=== PATIENT | female | born 1935 | race Caucasian/White ===

== ENCOUNTER 2019-10-15 12:49 | Outpatient (CLI) | payer MEDICARE, SELFPAY ==
--- NOTE | ~2019-10-15 | MMUS_ITS ---
EXAMINATION: MM diagnostic temitope BI w yaneth, US breast BI complete HISTORY: Bilateral breast pain TECHNIQUE: ML, MLO and cc 3-D tomosynthesis images of both breasts were performed and synthetic 2-D i mages were generated. CAD analysis was submitted and interpreted. High resolution bilateral complete breast ultrasound was performed. COMPARISON: 02/03/2019, 10/25/2017, 09/14/2016 bilateral digital screening mammogram examinations BREAST PARENCHYMAL COMPOSITION: The breasts are heterogeneously dense, which may obscure small masses . FINDINGS: MAMMOGRAPHIC FINDINGS: Occasional bilateral benign calcifications and bilateral benign arterial calcifications are noted. No suspicious mass or architectural distortion, malignant calcification, skin thickening or retraction or significant new or developing density is detected. ULTRASOUND: There is no evidence of focal abnormal solid or cystic lesion of either breast. IMPRESSION: 1. No mammographic evidence of malignancy 2. Routine mammographic screening is recommended. BI-RADS Category 1: Negative Reviewed, dictated and finalized at location A. IMPRESSION: 1. No mammographic evidence of malignancy 2. Routine mammographic screening is recommended. BI-RADS Category 1: Negative
== END 2019-10-15 12:50 | disposition home or self-care (01) ==
PROVIDERS: PCP Family Medicine; Visit Provider Family Medicine
DX: N64.4 Mastodynia (principal)
CPT/HCPCS: 76641; 77062; 77066; G0279

== ENCOUNTER 2021-06-27 13:57 | Outpatient (CLI) | payer MEDICARE, SELFPAY ==
--- NOTE | ~2021-06-27 | XR_ITS ---
EXAMINATION: XR hip LT 2V w AP pelvis INDICATION: Left hip pain TECHNIQUE: AP view the pelvis and two views of the left hip are obtained COMPARISON: CT, 08/05/2011 FINDINGS: Bone alignment is normal. There is no fracture. There is mild osteoarthritis of the hips. C hronic soft tissue calcifications are noted in the pelvis. Pelvic phleboliths are also noted. There i s severe lower lumbar spondylosis. There is calcified atherosclerosis. IMPRESSION: 1. No acute osseous abnormality. Reviewed, dictated and finalized at location B. 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
--- NOTE | ~2021-06-27 | XR_ITS ---
EXAMINATION: XR lumbar spine 2-3V DATE: 06/27/2021 14:19 INDICATION: Radiculopathy, site unspecified TECHNIQUE: Anteroposterior and lateral views of the lumbar spine, and cone-down lateral view of the l umbosacral junction were obtained. COMPARISON: CT, 08/05/2011 FINDINGS: There is lumbar levocurvature. There are 8 mm of anterolisthesis of L4 on L5. There is shameka re loss of intervertebral disc space height throughout the lumbar spine. The lumbar vertebral body he ights are maintained. No fracture is identified. There is severe facet osteoarthritis throughout the lumbar spine. Calcified atherosclerosis is noted. Chronic soft tissue calcification is noted posterio rly on the right. IMPRESSION: 1. Severe lumbar spondylosis without acute findings. Reviewed, dictated and finalized at location B. 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
== END 2021-06-27 13:58 | disposition home or self-care (01) ==
PROVIDERS: PCP Family Medicine; Visit Provider Family Medicine
DX: M25.552 Pain in left hip (principal); M47.26 Other spondylosis with radiculopathy, lumbar region
CPT/HCPCS: 72100; 73502

== ENCOUNTER 2021-07-15 12:19 | Emergency (ER) | payer MEDICARE, SELFPAY ==
[2021-07-15 12:27] VITALS: BP 147/59; PULSE 78; RESP 16; TEMP 36.6; O2SAT 100
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
== END 2021-07-15 13:23 | disposition home or self-care (01) ==
PROVIDERS: Emergency Provider Registered Nurse; PCP Family Medicine
DX: K13.79 Other lesions of oral mucosa (principal); K22.70 Barrett's esophagus without dysplasia; E78.5 Hyperlipidemia, unspecified; M06.9 Rheumatoid arthritis, unspecified
CPT/HCPCS: 99213; G0463

== ENCOUNTER 2021-08-29 13:35 | Outpatient (CLI) | payer MEDICARE, SELFPAY ==
--- NOTE | ~2021-08-29 | CT_ITS ---
EXAMINATION: CT brain wo/w con DATE: 08/29/2021 14:09 INDICATION: Repeated falls TECHNIQUE: Computed tomography (CT) of the head was performed without and subsequently with 100 CC Om nipaque 300 intravenous contrast. The mA was adjusted according to patient size. Iterative reconstruc tion technique was employed. Exam dose: 1210.67 mGy-cm total exam DLP. COMPARISON: None FINDINGS: Bilateral vertebral artery and basilar artery calcification and prominent bilateral carotid siphon and supraclinoid internal carotid artery calcifications are noted. Mild bilateral basal ganglia calcification. There is nonspecific diminished attenuation of the cerebral white matter, likely due to chronic small vessel ischemic changes. Prominent hyperdense approximately 7.5 mm wide 4.4 mm deep density along the inner table in the left frontal lobe, likely a small benign meningioma. There is moderate cerebellar and cerebral volume loss consistent with patient age. Otherwise no intracranial mass lesion or any intracranial hemorrhage is noted. No midline shift or ma ss effect. Likely old anterior and lateral wall fractures of the left maxillary sinus, left inferior orbital rim . No fracture or bone destruction of the cranial vault. No subdural or epidural hematoma. IMPRESSION: Probable old fractures of the anterior and lateral reed of left maxillary sinus, left i nfraorbital rim No skull fracture Cerebral atherosclerosis and chronic small vessel ischemic changes of the cerebral white matter Small left frontal meningioma Reviewed, dictated and finalized at Location A. Reviewed, dictated and finalized at location B. IMPRESSION: Probable old fractures of the anterior and lateral reed of left m axillary sinus, left infraorbital rim No skull fracture Cerebral atherosclerosis and chronic small vessel ischemic changes of the cereb ral white matter Small left frontal meningioma
== END 2021-08-29 13:36 | disposition home or self-care (01) ==
PROVIDERS: PCP Family Medicine; Visit Provider Family Medicine
DX: R29.6 Repeated falls (principal); I67.2 Cerebral atherosclerosis
CPT/HCPCS: 70470; Q9967

== ENCOUNTER 2021-11-23 12:50 | Outpatient (CLI) | payer MEDICARE, SELFPAY ==
--- NOTE | ~2021-11-23 | MM_ITS ---
EXAMINATION: MM screening temitope BI w yaneth HISTORY: Screening TECHNIQUE: Craniocaudal and mediolateral oblique 3-D tomosynthesis images were obtained and synthetic 2-D images were generated. CAD analysis was submitted and interpreted. COMPARISON: Comparison to multiple prior studies sequentially, with oldest reviewed study dated 09/03. BREAST PARENCHYMAL COMPOSITION: The breasts are extremely dense, which lowers the sensitivity of mamm ography FINDINGS: There is no evidence of suspicious mass, calcification, or architectural distortion to sugg est malignancy in either breast. There has been no suspicious interval change. IMPRESSION: 1. No mammographic evidence of malignancy. 2. Recommend routine screening mammography in one year. BI-RADS Category 1: Negative Reviewed, dictated and finalized at location A.
== END 2021-11-23 12:51 | disposition home or self-care (01) ==
PROVIDERS: PCP Family Medicine; Visit Provider Family Medicine
DX: Z12.31 Encounter for screening mammogram for malignant neoplasm of breast (principal)
CPT/HCPCS: 77063; 77067

== ENCOUNTER → 2021-11-24 11:44 | Outpatient (CLI) | payer MEDICARE, SELFPAY ==
--- NOTE | ~2021-11-24 | XR_ITS ---
XR hip RT 2V w AP pelvis DATE: 11/24/2021 12:12 INDICATION: Right hip pain starting 5 days ago. No known injury. TECHNIQUE: AP pelvis. AP and lateral views of right hip. COMPARISON: 06/27/2021 pelvis and left hip FINDINGS: There is osteopenia. Dextro scoliosis and degenerative disc disease of the lumbar spine. No pelvic fracture or bone destruction is detected. Normal alignment at the pubic symphysis and sacro iliac joints. Mild osteoarthritis at the right hip joint. No fracture or dislocation, avascular necrosis or bone destruction of the right hip is detected. Ther e are some benign soft tissue calcifications around both hip joints. IMPRESSION: Mild right hip osteoarthritis Osteopenia Reviewed, dictated and finalized at location B.
== END ==
PROVIDERS: PCP Family Medicine; Visit Provider Family Medicine
DX: M25.551 Pain in right hip (principal); M16.11 Unilateral primary osteoarthritis, right hip; M85.861 Other specified disorders of bone density and structure, right lower leg
CPT/HCPCS: 73502

== ENCOUNTER → 2022-02-14 09:58 | Outpatient (CLI) | payer MEDICARE, SELFPAY ==
--- NOTE | ~2022-02-14 | MR_ITS ---
EXAMINATION: MR hip RT wo con DATE: 02/14/2022 12:09 INDICATION: Right hip pain TECHNIQUE: Magnetic resonance imaging (MRI) of the right hip was performed without intravenous contr ast. Sequences included full-field axial PD-weighted FS FSE and T1-weighted FSE, coronal of the pelvi s with PD-weighted FS FSE, small field of view of the affected hip with axial PD-weighted FS FSE, sa gittal PD-weighted FS FSE and coronal PD weighted FS FSE. Additional radial T1-weighted FGR oriented orthogonal to the acetabular rim were obtained for evaluation of the labrum. COMPARISON: None FINDINGS: Bones/labrum/cartilage: Alignment is normal. No fracture, avascular necrosis or pathologic marrow replacing process. . Degen erative tearing of the right acetabular labrum. Mild to moderate osteoarthritis at the right hip with nonuniform partial thickness cartilage loss with scattered chondral surface regularity. Mild subarti cular cystic change along the posterior superior rim of the right acetabulum. Small marginal osteophy zoe about both the right femoral head and acetabulum. Similar findings suggested but not diagnostical ly evaluated at the contralateral left hip on the larger field of view images. Severe lumbar spondylo sis. Moderate osteoarthritis at the bilateral sacroiliac joints. Fluid: Small bilateral hip joint effusions. Soft tissues: No asymmetric muscle atrophy or abnormal signal in the pelvis and visualized proximal thighs. Mild te ndinopathy without discrete tear at the left gluteus minimus, bilateral gluteus medius and left proxi mal hamstring tendons. The iliopsoas, remaining gluteal and right proximal hamstring tendons are norm al. The uterus is not identified and has likely been surgically resected. Bladder is normal. Bowels a re unremarkable. Severe right hydronephrosis with a dilated renal pelvis and collecting systems measu ring approximately 11 x 10.7 x 9.2 cm consistent with a UPJ obstruction which is new since CT dated 05/04/2011. Subcutaneous low signal intensity heterotopic ossicles likely representing injection granu lomata at the bilateral buttocks. No pathologically enlarged pelvic/inguinal lymphadenopathy. IMPRESSION: 1. Mild to moderate right hip osteoarthritis with diffuse labral degeneration and likely reactive sma ll right hip joint effusion. Similar findings suggested but not diagnostically evaluated at the contr alateral left hip. 2. 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 Reviewed, dictated and finalized at location A. IMPRESSION: 1. Mild to moderate right hip osteoarthritis with diffuse labral degeneration a nd likely reactive small right hip joint effusion. Similar findings suggested b ut not diagnostically evaluated at the contralateral left hip. 2. 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
== END ==
PROVIDERS: PCP Family Medicine; Visit Provider Orthopaedic Surgery
DX: M16.11 Unilateral primary osteoarthritis, right hip (principal)
CPT/HCPCS: 73721

== ENCOUNTER 2022-02-14 16:45 | Emergency (ER) | payer MEDICARE, SELFPAY ==
[2022-02-14] VITALS (26 sets, daily range): BP systolic 137–152; BP diastolic 68–83; PULSE 55–84; RESP 13–21; TEMP 36.4–36.8; O2SAT 94–100
--- NOTE | ~2022-02-14 | CT_ITS ---
EXAMINATION: CT abdomen pelvis wo con DATE: 02/14/2022 19:22 INDICATION: Urinary retention, dysuria. Likely right ureteropelvic junction obstruction reported on M RI examination TECHNIQUE: Computed tomography (CT) of the abdomen and pelvis was performed without intravenous contr ast. Automated exposure control and iterative reconstruction technique were employed. Exam dose: 278 .24 mGy-cm total exam DLP. COMPARISON: 03/04/2012 CT abdomen pelvis FINDINGS: There is mild discoid atelectasis or scarring at the base of the lingula. Lung bases are cl ear of infiltrate or consolidation. Cardiomegaly. Coronary artery calcifications. No pericardial or pleural effusion. The liver, spleen, pancreas, and adrenal glands are unremarkable. There is massive right hydronephrosis and pelviectasis with severe thinning of the right renal cortex , consistent with likely long-standing right ureteropelvic junction obstruction. The left kidney is unremarkable. No urinary tract calculus is evident. There is extensive abdominal aortic calcification and aneurysm. No intraperitoneal or retroperitoneal or pelvic mass lesion or adenopathy or ascites is noted. The urinary bladder is moderately distended. No bladder wall thickening is noted. Status post hysterectomy. There is diverticulosis of the colon; no bowel obstruction, bowel wall thickening, pneumatosis or int raperitoneal free air is detected. Multilevel severe degenerative disease of the lumbar spine, prominent degenerative change at the apop hyseal joints. Osteopenia. Bilateral hip osteoarthritis. IMPRESSION: Severe chronic right hydronephrosis and pelviectasis secondary to right ureteropelvic ju nction Diverticulosis of the colon Cardiomegaly Reviewed, dictated and finalized at Location A. Reviewed, dictated and finalized at location A. IMPRESSION: Severe chronic right hydronephrosis and pelviectasis secondary to right ureteropelvic junction Diverticulosis of the colon Cardiomegaly
--- NOTE | ~2022-02-14 | XR_ITS ---
XR abdomen/kub 1V DATE: 02/14/2022 18:28 INDICATION: Ureterolithiasis TECHNIQUE: AP views COMPARISON: 03/04/2012 CT abdomen pelvis 10/23/2011 small bowel series FINDINGS: There is osteopenia. There is dextroscoliosis of the thoracolumbar spine and severe degener ative disc disease of the lumbar spine. Prominent splenic artery calcification. Abdominal aortic calcification. There is a prominent of fecal material in the colon but no evidence of bowel obstruction. No intraper itoneal free air is noted. The psoas shadows are intact. Bilateral calcified pelvic phleboliths. No obvious urinary tract calcification is noted. IMPRESSION: Prominent amount fecal material in the colon; no bowel obstruction Reviewed, dictated and finalized at Location A. Reviewed, dictated and finalized at location A.
--- NOTE | 2022-02-14 17:39 | ECG_ITS ---
Measurements Intervals [place] Rate: 62 P: 85 WV: 145 QRS: 70 QRSD: 90 T: 81 QT: 424 QTc: 431 Interpretive Statements SINUS RHYTHM WITH OCCASIONAL VENTRICULAR PREMATURE COMPLEXES NO PREVIOUS ECG AVAILABLE FOR COMPARISON Electronically Signed On 02-15-2022 13:06:29 CDT by Shanna Hardy M.D.
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
[2022-02-14 18:08] LABS: Basophils Percent Auto 0.6 % (0.2-1.2); Eosinophils Absolute Auto 0.1 K/mm3 (0-0.3); Eosinophils Percent Auto 1.9 % (0-4.4); Hematocrit 38.7 % (37.0-47.0); Immature Granulocyte Absolute 0.01 K/mm3 (0.00-0.031); Immature Granulocyte Percent A 0.2 % (0-0.5); Lymphocytes Absolute Auto 1.42 K/mm3 (0.9-3.2); Mean Corpuscular HGB Conc 33.6 g/dl (32-36); Mean Corpuscular Hemoglobin 32.7 pg (26-34); Mean Corpuscular Volume 97.2 fl (80-100); Mean Platelet Volume 9.3 fl (7.4-10.4); Monocytes Absolute Auto 0.6 K/mm3 (0.1-0.6); Monocytes Percent Auto 12.2 % (2.6-8.5); Neutrophils Absolute Auto 3.1 K/mm3 (1.3-6.7); Neutrophils Percent Auto 58.1 % (45.5-73.1); Platelet Count Result 160 k/mm3 (150-375); Red Blood Count 3.98 M/mm3 (4.2-5.4); Red Cell Distribution Width 13.2 % (11.5-14.5); White Blood Count 5.3 K/mm3 (4.5-10.0)
--- NOTE | 2022-02-14 18:08 | PC.NURSE ---
pt reports outpt MRI today for right inguinal pain. Reports PCP called her told her to come to ED for blockage in kidney
[2022-02-14 18:18] LABS: Add Urine Microscopic? YES; Appearance Urine Clear (Clear); Bilirubin Urine Negative (Negative); Blood Urine Negative (Negative); Color Urine Straw (Yellow); Glucose Urine UA Negative (Negative); Ketones Urine Negative (Negative); Leukocyte Esterase Ur 2+ LEU/UL (Negative); Mucus Urine Rare /lpf; Nitrate Urine Negative (Negative); Protein Urine Negative (Negative); RBC Urine 0-2 /hpf (0-2); Urobilinogen Urine Negative mg/dL (<2.0)
[2022-02-14 18:20] LABS: Alanine Aminotransferase 21 U/L (6-35); Albumin Level 4.5 g/dL (3.5-5.1); Alkaline Phosphatase 64 U/L (38-126); Anion Gap 14 mmol/L (8-16); Aspartate Amino Transferase 35 U/L (14-36); Bilirubin,Total 0.3 mg/dL (0.2-1.3); Blood Urea Nitrogen 17 mg/dL (7-17); Calcium 9.1 mg/dL (8.4-10.2); Carbon Dioxide 27 mmol/L (22-30); Chloride 99 mmol/L (98-107); Estimated CRCL calculation 48 ml/min; Estimated Glomerular Filt Rate > 60; Glucose 94 mg/dL (65-110); Lipase 62 U/L (23-300); Potassium 3.7 mmol/L (3.4-5.0); Sodium 140 mmol/L (137-145)
[2022-02-14 18:21] LABS: Specific Grav Ur 1.004 (1.001-1.035)
== END 2022-02-14 21:27 | disposition home or self-care (01) ==
PROVIDERS: Physician Assistant; Emergency Provider Emergency Medicine; PCP Family Medicine
DX: N13.0 Hydronephrosis with ureteropelvic junction obstruction (principal); N39.0 Urinary tract infection, site not specified; I87.2 Venous insufficiency (chronic) (peripheral); E78.5 Hyperlipidemia, unspecified; I10 Essential (primary) hypertension; K22.70 Barrett's esophagus without dysplasia; M19.90 Unspecified osteoarthritis, unspecified site; Z90.710 Acquired absence of both cervix and uterus; Z90.722 Acquired absence of ovaries, bilateral; Z90.79 Acquired absence of other genital organ(s); I49.3 Ventricular premature depolarization; I51.7 Cardiomegaly; K57.90 Diverticulosis of intestine, part unspecified, without perforation or abscess without bleeding
CPT/HCPCS: 36415; 74018; 74176; 80053; 81001; 83690; 85025; 87086; 93005; 96365; 99284; J0696

== ENCOUNTER 2022-02-28 08:13 | Outpatient (CLI) | payer MEDICARE, SELFPAY ==
[2022-02-28 19:34] LABS: Cholesterol 242 mg/dL (0-200); HDL Direct 86 mg/dL; Triglycerides 70 mg/dL (<150)
[2022-02-28 19:55] LABS: LDL Cholesterol Direct 115 mg/dL
[2022-02-28 20:27] LABS: Vitamin D 25 Hydroxy 45.5 ng/mL
== END 2022-02-28 08:14 | disposition home or self-care (01) ==
LOC: ANHGOSHLAB 08:17
PROVIDERS: PCP Family Medicine; Visit Provider Family Medicine
DX: E78.5 Hyperlipidemia, unspecified (principal); E53.8 Deficiency of other specified B group vitamins; F41.8 Other specified anxiety disorders; E55.9 Vitamin D deficiency, unspecified
CPT/HCPCS: 36415; 80061; 82306; 82607; 84443

== ENCOUNTER 2022-03-22 11:17 | Outpatient (CLI) | payer MEDICARE, SELFPAY ==
--- NOTE | ~2022-03-22 | NM_ITS ---
EXAMINATION: ZORA castillo renal scan DATE: 03/22/2022 14:53 INDICATION: Hydronephrosis due to obstruction of ureter. TECHNIQUE: 8.1 mCi Tc-99m MAG3 was administered IV. 40 mg furosemide was administered IV immediately afterward. The patient was scanned in the supine position. A posterior abdominal radionuclide angiog fern was obtained. A subsequent time course of static images of the kidneys, ureters, and bladder was obtained. COMPARISON: CT abdomen and pelvis 02/14/2022, 08/05/11 FINDINGS: The posterior abdominal radionuclide angiogram and sequential static images show right hydr onephrosis. Peak renal parenchymal uptake was 1 min in right kidney and 2 min in left kidney (normal peak 3-5 minutes). The relative early renal uptake was 32% on the right and 68% on the left (<40% is abnormal). No abnormalities of the ureters or bladder are seen. T1/2 for clearance of activity from the right kidney and proximal collecting system was 15 minutes. T1/2 for clearance of activity from the left kidney and proximal collecting system was 5 minutes. IMPRESSION: 1. Relatively decreased right kidney function, which is 32% of total renal function. 2. Right hydronephrosis with delayed contrast clearance, consistent with fixed ureteral obstruction. Reviewed, dictated and finalized at location A. T LEATHER MOSSER IMPRESSION: 1. Relatively decreased right kidney function, which is 32% of total renal fun ction. 2. Right hydronephrosis with delayed contrast clearance, consistent with fixed ureteral obstruction.
== END 2022-03-22 11:18 | disposition home or self-care (01) ==
PROVIDERS: PCP Family Medicine; Visit Provider Urology
DX: N13.1 Hydronephrosis with ureteral stricture, not elsewhere classified (principal)
CPT/HCPCS: 78708; A9562

== ENCOUNTER 2022-09-05 10:26 | Outpatient (CLI) | payer MEDICARE, SELFPAY ==
[2022-09-05 19:53] LABS: Alanine Aminotransferase 26 U/L (6-35); Albumin Level 4.5 g/dL (3.5-5.1); Alkaline Phosphatase 65 U/L (38-126); Anion Gap 4 mmol/L (8-16); Aspartate Amino Transferase 50 U/L (14-36); Bilirubin,Total 0.6 mg/dL (0.2-1.3); Blood Urea Nitrogen 15 mg/dL (7-17); Carbon Dioxide 33 mmol/L (22-30); Chloride 100 mmol/L (98-107); Estimated Glomerular Filt Rate > 60; Glucose 97 mg/dL (65-110); Potassium 4.9 mmol/L (3.4-5.0); Sodium 137 mmol/L (137-145)
== END 2022-09-05 10:27 | disposition home or self-care (01) ==
LOC: ANHGOSHLAB 10:30
PROVIDERS: PCP Family Medicine; Visit Provider Family Medicine
DX: E78.5 Hyperlipidemia, unspecified (principal); F41.8 Other specified anxiety disorders; I10 Essential (primary) hypertension
CPT/HCPCS: 36415; 80053

== ENCOUNTER → 2022-09-05 14:17 | Outpatient (CLI) | payer MEDICARE, SELFPAY ==
--- NOTE | ~2022-09-05 | XR_ITS ---
EXAMINATION: XR femur LT min 2V DATE: 09/05/2022 14:40 INDICATION: Nontraumatic medial left thigh pain. TECHNIQUE: AP and lateral views of the left femur were obtained on overlapping proximal and distal im ages. COMPARISON: CT dated 02/14/2022 FINDINGS: Bone alignment is normal. No fracture. Chondrocalcinosis at the medial lateral compartments of the le ft knee with otherwise normal-appearing joint space. No left knee joint effusion. Left hip joint spac e is normal. There are few calcified phleboliths in the pelvis and several heterotopic ossicles in th e subcutaneous fat at the inferolateral left buttock. Vascular calcifications identified along the fe moral and popliteal arteries. Soft tissues are otherwise unremarkable. IMPRESSION: 1. Chondrocalcinosis at the left knee. Reviewed, dictated and finalized at location A.
== END ==
PROVIDERS: PCP Family Medicine; Visit Provider Family Medicine
DX: M79.652 Pain in left thigh (principal); M11.262 Other chondrocalcinosis, left knee
CPT/HCPCS: 73552

== ENCOUNTER 2022-10-31 13:25 | Outpatient (CLI) | payer MEDICARE, SELFPAY ==
--- NOTE | ~2022-10-31 | NM_ITS ---
EXAMINATION: ZORA castillo renal scan DATE: 10/31/2022 15:17 INDICATION: Hydronephrosis TECHNIQUE: 7.6 mCi Tc-99m MAG3 was administered IV. 40 mg furosemide was administered IV immediately afterward. A posterior abdominal radionuclide angiogram was obtained. A subsequent time course of st atic images of the kidneys, ureters, and bladder was obtained. COMPARISON: 03/22/2022 FINDINGS: The posterior abdominal radionuclide angiogram and sequential static images show hydronephrosis of th e right kidney which appears mildly enlarged. There is normal size and position of the left kidney. P eak renal parenchymal uptake was 1.9 min in left kidney and 1.1 min in right kidney (normal peak 3-5 minutes). The relative early renal uptake was 70% on the left and 30% on the right (<40% is abnormal ). No abnormalities of the ureters or bladder are seen. T1/2 for clearance of activity from the left kidney and proximal collecting system was 5.6 minutes. T1/2 for clearance of activity from the right kidney and proximal collecting system was 17.4 minutes. Notes on interpretation: T1/2 <10 minutes is normal, 10-15 minutes is low grade obstruction of questi onable clinical significance, 15-20 minutes is partial obstruction that is likely clinically signific ant, >20 minutes is high grade obstruction. Note that false positives may be seen with supine positio kirill, dehydration, severely dilated nonobstructed kidney, atonic collecting system, poor renal functi on, and chronic furosemide use. IMPRESSION: 1. No significant change in relatively decreased right kidney function which contributes 32% to tota l renal function. 2. Persistent right hydronephrosis with delayed activity clearance consistent with a fixed partial ob struction that is likely clinically significant. Reviewed, dictated and finalized at location A. IMPRESSION: 1. No significant change in relatively decreased right kidney function which c ontributes 32% to total renal function. 2. Persistent right hydronephrosis with delayed activity clearance consistent w ith a fixed partial obstruction that is likely clinically significant.
== END 2022-10-31 13:26 | disposition home or self-care (01) ==
PROVIDERS: PCP Family Medicine; Visit Provider Urology
DX: N13.30 Unspecified hydronephrosis (principal)
CPT/HCPCS: 78708; A9562; J1940

== ENCOUNTER 2023-03-02 08:38 | Outpatient (CLI) | payer MEDICARE, SELFPAY ==
[2023-03-02 13:54] LABS: Eosinophils Absolute Auto 0.1 K/mm3 (0-0.3); Eosinophils Percent Auto 3.3 % (0-4.4); Hematocrit 43.2 % (37.0-47.0); Hemoglobin 13.9 g/dL (12.0-15.0); Immature Granulocyte Absolute 0.01 K/mm3 (0.00-0.031); Immature Granulocyte Percent A 0.3 % (0-0.5); Lymphocytes Absolute Auto 1.06 K/mm3 (0.9-3.2); Lymphocytes Percent Auto 26.6 % (18.3-44.2); Mean Corpuscular HGB Conc 32.2 g/dl (32-36); Mean Corpuscular Hemoglobin 31.7 pg (26-34); Mean Corpuscular Volume 98.4 fl (80-100); Monocytes Absolute Auto 0.4 K/mm3 (0.1-0.6); Monocytes Percent Auto 9.3 % (2.6-8.5); Neutrophils Absolute Auto 2.4 K/mm3 (1.3-6.7); Neutrophils Percent Auto 59.5 % (45.5-73.1); Platelet Count Result 170 k/mm3 (150-375); Red Blood Count 4.39 M/mm3 (4.2-5.4); Red Cell Distribution Width 13.8 % (11.5-14.5)
[2023-03-02 14:10] LABS: Alanine Aminotransferase 20 U/L (6-35); Albumin Level 4.2 g/dL (3.5-5.1); Alkaline Phosphatase 63 U/L (38-126); Anion Gap 10 mmol/L (8-16); Aspartate Amino Transferase 35 U/L (14-36); Bilirubin,Total 0.7 mg/dL (0.2-1.3); Blood Urea Nitrogen 16 mg/dL (7-17); Calcium 9.4 mg/dL (8.4-10.2); Carbon Dioxide 29 mmol/L (22-30); Chloride 103 mmol/L (98-107); Cholesterol 244 mg/dL (0-200); Estimated Glomerular Filt Rate > 60; Glucose 95 mg/dL (65-110); HDL Direct 80 mg/dL; Potassium 4.8 mmol/L (3.4-5.0); Sodium 142 mmol/L (137-145); Triglycerides 95 mg/dL (<150)
[2023-03-02 14:21] LABS: LDL Cholesterol Direct 108 mg/dL
[2023-03-02 18:05] LABS: Vitamin D 25 Hydroxy 41.3 ng/mL
== END 2023-03-02 08:39 | disposition home or self-care (01) ==
PROVIDERS: PCP Family Medicine; Visit Provider Family Medicine
DX: K06.8 Other specified disorders of gingiva and edentulous alveolar ridge (principal); Z00.00 Encounter for general adult medical examination without abnormal findings; E55.9 Vitamin D deficiency, unspecified; I10 Essential (primary) hypertension; E78.5 Hyperlipidemia, unspecified; E53.8 Deficiency of other specified B group vitamins
CPT/HCPCS: 36415; 80053; 80061; 82306; 82607; 84443; 85025

== ENCOUNTER 2024-01-30 12:31 | Outpatient (CLI) | payer MEDICARE, SELFPAY ==
[2024-01-30 17:06] LABS: Alanine Aminotransferase 17 U/L (6-35); Albumin Level 4.3 g/dL (3.5-5.1); Alkaline Phosphatase 81 U/L (38-126); Anion Gap 6 mmol/L (4-12); Aspartate Amino Transferase 40 U/L (14-36); Bilirubin,Total 0.5 mg/dL (0.2-1.3); Blood Urea Nitrogen 15 mg/dL (7-17); Calcium 9.7 mg/dL (8.4-10.2); Carbon Dioxide 32 mmol/L (22-30); Chloride 99 mmol/L (98-107); Estimated Glomerular Filt Rate > 60; Glucose 103 mg/dL (65-110); Potassium 4.3 mmol/L (3.4-5.0); Sodium 137 mmol/L (137-145)
[2024-01-30 17:38] LABS: Hemoglobin A1C 5.9 % (<5.7)
== END 2024-01-30 12:32 | disposition home or self-care (01) ==
LOC: ANHGOSHLAB 12:33
PROVIDERS: PCP Family Medicine; Visit Provider Family Medicine
DX: R73.9 Hyperglycemia, unspecified (principal); I10 Essential (primary) hypertension
CPT/HCPCS: 36415; 80053; 83036

== ENCOUNTER 2024-04-02 14:33 | Outpatient (CLI) | payer MEDICARE, SELFPAY ==
--- NOTE | ~2024-04-02 | XR_ITS ---
EXAMINATION: XR chest 2V DATE: 04/02/2024 14:47 INDICATION: Crackles in lungs. Hypertension. TECHNIQUE: Frontal and lateral views of the chest were obtained. COMPARISON: CT abdomen and pelvis 02/14/2022 FINDINGS: There is mild atelectasis in left lower lung zone. No pleural effusion or pneumothorax the heart size is normal. Calcified right hilar lymph nodes are consistent with old granulomatous disease . IMPRESSION: 1. Mild atelectasis in left lower lung zone. Reviewed, dictated and finalized at location A. REMOVER
== END 2024-04-02 14:34 | disposition home or self-care (01) ==
LOC: GOSHIMG 14:34
PROVIDERS: PCP Family Medicine; Visit Provider Family Medicine
DX: R09.89 Other specified symptoms and signs involving the circulatory and respiratory systems (principal); R91.8 Other nonspecific abnormal finding of lung field
CPT/HCPCS: 71046

== ENCOUNTER 2024-04-08 08:47 | Outpatient (CLI) | payer MEDICARE, SELFPAY ==
[2024-04-08 13:50] LABS: Basophils Percent Auto 0.8 % (0.2-1.2); Eosinophils Absolute Auto 0.1 K/mm3 (0-0.3); Eosinophils Percent Auto 2.5 % (0-4.4); Hematocrit 43.2 % (37.0-47.0); Immature Granulocyte Absolute 0.01 K/mm3 (0.00-0.031); Immature Granulocyte Percent A 0.3 % (0-0.5); Lymphocytes Absolute Auto 0.97 K/mm3 (0.9-3.2); Lymphocytes Percent Auto 24.6 % (18.3-44.2); Mean Corpuscular HGB Conc 32.4 g/dl (32-36); Mean Corpuscular Hemoglobin 31.7 pg (26-34); Mean Corpuscular Volume 97.7 fl (80-100); Monocytes Absolute Auto 0.4 K/mm3 (0.1-0.6); Monocytes Percent Auto 9.9 % (2.6-8.5); Neutrophils Absolute Auto 2.4 K/mm3 (1.3-6.7); Neutrophils Percent Auto 61.9 % (45.5-73.1); Platelet Count Result 182 k/mm3 (150-375); Red Blood Count 4.42 M/mm3 (4.2-5.4); Red Cell Distribution Width 14.3 % (11.5-14.5); White Blood Count 3.9 K/mm3 (4.5-10.0)
[2024-04-08 14:00] LABS: Alanine Aminotransferase 16 U/L (6-35); Albumin Level 4.3 g/dL (3.5-5.1); Alkaline Phosphatase 70 U/L (38-126); Anion Gap 3 mmol/L (4-12); Aspartate Amino Transferase 52 U/L (14-36); Bilirubin,Total 0.6 mg/dL (0.2-1.3); Blood Urea Nitrogen 15 mg/dL (7-17); Calcium 9.5 mg/dL (8.4-10.2); Carbon Dioxide 31 mmol/L (22-30); Chloride 104 mmol/L (98-107); Cholesterol 238 mg/dL (0-200); Estimated Glomerular Filt Rate > 60; Glucose 90 mg/dL (65-110); HDL Direct 84 mg/dL; Potassium 4.8 mmol/L (3.4-5.0); Sodium 138 mmol/L (137-145); Triglycerides 81 mg/dL (<150)
[2024-04-08 14:14] LABS: LDL Cholesterol Direct 108 mg/dL; Vitamin D 25 Hydroxy 54.3 ng/mL
[2024-04-08 14:28] LABS: Hemoglobin A1C 5.5 % (<5.7)
== END 2024-04-08 08:48 | disposition home or self-care (01) ==
LOC: ANHGOSHLAB 08:48
PROVIDERS: PCP Family Medicine; Visit Provider Family Medicine
DX: Z00.00 Encounter for general adult medical examination without abnormal findings (principal); I10 Essential (primary) hypertension; R73.03 Prediabetes; E78.5 Hyperlipidemia, unspecified; E53.8 Deficiency of other specified B group vitamins; E55.9 Vitamin D deficiency, unspecified
CPT/HCPCS: 36415; 80053; 80061; 82306; 82607; 83036; 84443; 85025

== ENCOUNTER 2024-06-20 13:53 | Outpatient (CLI) | payer MEDICARE, SELFPAY | END 2024-06-20 13:54 | disposition home or self-care (01) | LOC: ANHIMG 13:54 | PROVIDERS: PCP Family Medicine; Visit Provider Nurse Practitioner Family | DX: R09.89 Other specified symptoms and signs involving the circulatory and respiratory systems (principal) | CPT/HCPCS: 93971 ==

== ENCOUNTER 2024-06-25 08:25 | Outpatient (CLI) | payer MEDICARE, SELFPAY ==
--- NOTE | ~2024-06-25 | XR_ITS ---
XR hip RT 2V w AP pelvis Ordering provider: Damien Ta MD History: . M25.551 - Pain in right hip . Comparison: None. FINDINGS: BONES: No acute fracture or dislocation. HIP JOINT SPACES: Bilateral hip moderate osteoarthritic changes. SACROILIAC JOINT SPACES/LUMBAR SPINE: The sacroiliac joint spaces are normal. Mild degenerative blanco es of the visualized lower lumbar spine. PUBIC SYMPHYSIS: Normal. SOFT TISSUES: Calcification the right buttock areas seen. Vascular calcifications are also noted. IMPRESSION: No acute osseous abnormality pelvis and right hip. Reviewed, dictated and finalized at location A. 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
== END 2024-06-25 08:26 | disposition home or self-care (01) ==
LOC: GOSHIMG 08:25
PROVIDERS: PCP Family Medicine; Visit Provider Family Medicine
DX: M25.551 Pain in right hip (principal)
CPT/HCPCS: 73502

== ENCOUNTER 2024-07-11 11:27 | Outpatient (CLI) | payer MEDICARE, SELFPAY ==
--- NOTE | ~2024-07-11 | XR_ITS ---
[id number] 07/11/2024 12:00 Indication: Right knee pain Procedure: 2 views right knee Comparison: No prior studies for comparison. Findings: No fracture, subluxation or dislocation. Osteopenia. No significant joint effusion. No fore ign bodies. There is atherosclerosis. There is chondrocalcinosis. There is mild osteoarthritis. 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 Reviewed, dictated and finalized at location B. 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
--- OUTSIDE RECORDS SUMMARY | 2024-07-11 12:44 | XMS_ITS | Continuity of Care Document ---
Author Organization [facility] Address [address] [place] [address] [address] [place] [address] Phone Care Team Providers Care Silver Wrapper Name Role Phone Caridad Longo Unavailable Unavailable Advance Directives Directive Yes / No Effective Date File Name No Information Encounters Encounter Description Practice Location Reason(s) For Visit Diagnoses Date Provider Providers Copied on Encounter [facility], [address], [place], [place], [id number], [place] tel:[phone] [facility] No Information [address] , [address], [place], [address], [place]. tel:[phone] Family History Family Member Type Diagnosis Age At Onset No Information Payers Payer name Insurance type Covered democrat ID Authoriza tion(s) [place] [id number] [place] [id number] Social History Type Description Quantity Date Captured Comments Sex Female Smoking Status No Information Chief Complaint And Reason For Visit No Information Reason For Referral Reason For Referral No Information History Of Present Illness Encounter Date Complaint History Of Prese nt Illness No Information Functional Status Date Functional Assessmen t No Information Instructions Date Instruction Additional Infor mation No Information Assessments Type Assessment Date No Information Patient Care Teams Name Effective Dates (start - stop) Status Members No Information
--- OUTSIDE RECORDS SUMMARY | 2024-07-11 12:45 | XMS_ITS | Clinical Summary ---
Author Organization [facility] [place] [address] Address [address] [place] [address] Care Team Providers Care Hr Operations Advisor Name Role Phone Antonio Ta MD Primary Care Provider Allergies No known active allergies Medications vitamin E (AQUASOL E) 1,000 unit capsule Take 1 capsule (1,000 Units total) by mouth daily 30 capsule 03/12/2023 Active pentoxifylline ER (TRENtal) 400 mg CR tablet TAKE 1 TABLET (400 MG TOTAL) BY MOUTH 2 TIMES A DAY 60 tablet 03/14/2023 Active alendronate (FOSAMAX) 70 mg tablet TAKE 1 TABLET (70 MG TOTAL) BY MOUTH EVERY 7 DAYS TAKE IN THE MORNING WITH A FULL GLASS OF WATER, ON AN EMPTY STOMACH, AND DO NOT TAKE ANYTHING ELSE BY MOUTH OR LIE DOWN FOR THE NEXT 30 MIN. 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 Gender Identity Not on file Sexual Orientation Not on file Obstetrics History Plan of Treatment Health Maintenance Due Date Last Done Comments Depression Screening 1935 Fall Risk Assessment 1935 DTaP/Tdap/Td Vaccine (1 - Tdap) 1948 Hepatitis B Screening 10[birth year]24/1955 Well Visit 65+ 2002 Zoster Vaccine (2 of 2) 04/27/2023 03/02/2023 Covid-19 Vaccine (2023-2 5 season) 2023 01/29/2023, 06/19/2022, 04/10/2021, Additional history exists Influenza Vaccine (#1) 2023 Pneumococcal vaccine 65+ Completed 03/02/2023 Insurance [employer] SENIOR SUPPLEMENT MEDICARE MEDICARE [employer] SENIOR SUPPLEMENT MEDICARE A[employer] SENIOR SUPPLEMENT Care Teams Hr Operations Advisor Relationship Specialty Start Date End Date Antonio Ta MD PCP - General Family Practice 10/21/19
--- OUTSIDE RECORDS SUMMARY | 2024-07-11 12:45 | XMS_ITS | Referral Summary ---
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
--- OUTSIDE RECORDS SUMMARY | 2024-07-11 12:45 | XMS_ITS | Clinical Summary ---
Author Organization [facility] Address [facility] [address] [place] [address] Phone Care Team Providers Care Mother Helper Name Role Phone Elias Leger MD Primary Care Provider [phone] Nate Disla DO Unavailable [phone] 3 Medications polyethylene glycol (MIRALAX) Powder Mix the entire bottle with 64 oz of a clear liquid. Use as directed by the office for colonoscopy prep. 1 Bottle 0 5 Active Immunizations Immunization Administration Dates Next Due Covid-19, Mrna, Lnp-s, PF, 1 00 mcg/0.5 mL Dose (Moderna) 09/17/2020,08/20/2020 Social History Tobacco Use Types Packs/Day Years Used Date Smoking Tobacco: Never Assessed Comments Unknown Sex and Gender Information Value Date Recorded Sex Assigned at Not on file Legal Sex Female 11:42 PM CDT Gender Identity Not on file Sexual Orientation Not on file Plan of Treatment Health Maintenance Due Date Last Done Comments DEXA Bone Density 1935 Hepatitis C Virus (HCV) Screening 1935 TdaP Immunization 1935 Pneumococcal Immunization (5 0+ years) (1 of 1 - PCV) 10/24/1987 Zoster Immunization (1 of 2) 10/24/1987 Respiratory Syncytial Virus (RSV) Immunization (Adult) (1 - 1-dose 75+ series) 2012 Influenza Immunization (#1) 2023 SARS-COV-2 Immunization ( season) 2023 04/10/2021, 09/17/2020, 08/20/2020 Hepatitis B Immunization Aged Out No longer eligible based on patient's age to complete this topic Meningococcal Immunization (ACWY) Aged Out No longer eligible b ased on patient's age to complete this topic Rotavirus Immunization Aged Out No lo nger eligible based on patient's age to complete this topic Insurance MEDICARE AET SENIOR SUPPLEMENTAL Care Teams Mother Helper Relationship Specialty Start Date End Date Elias Leger MD [address] [place] [address] PCP - General Family Medicine 05/13/15 Nate Disla DO [address] [place] [address] Gastroenterology 05/13/15
== END 2024-07-11 11:28 | disposition home or self-care (01) ==
PROVIDERS: PCP Family Medicine; Visit Provider Nurse Practitioner Family
DX: M17.11 Unilateral primary osteoarthritis, right knee (principal); M11.261 Other chondrocalcinosis, right knee
CPT/HCPCS: 73560

== ENCOUNTER 2025-04-17 08:21 | Outpatient (CLI) | payer MEDICARE, SELFPAY ==
--- OUTSIDE RECORDS SUMMARY | 2025-04-17 08:24 | XMS_ITS | Clinical Summary ---
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 Gender Identity Not on file Sexual Orientation Not on file Plan of Treatment Health Maintenance Due Date Last Done Comments Depression Screening 1935 Fall Risk Assessment 1937 Osteoporosis Screening-Bone Density Scan 1937 DTaP/Tdap/Td Vaccine (1 - Tdap) 1948 Hepatitis B Screening 10/24/1955 Well Visit 65+ 2002 Zoster Vaccine (2 of 2) 04/27/2023 03/02/2023 Covid-19 Vaccine (2024-2 6 season) 2024 01/29/2023, 06/19/2022, 04/10/2021, Additional history exists Influenza Vaccine (#1) 2024 Pneumococcal vaccine 65+ Completed 03/02/2023 Insurance [employer] SENIOR SUPPLEMENT MEDICARE MEDICARE AETNA SENIOR SUPPLEMENT MEDICARE AET[employer] SENIOR SUPPLEMENT Care Teams Records Custodian Relationship Specialty Start Date End Date Antonio Ta MD PCP - General Family Practice 10/21/19
--- OUTSIDE RECORDS SUMMARY | 2025-04-17 08:24 | XMS_ITS | Clinical Summary ---
Author Organization [facility] Address [facility] [address] [place] [address] Phone Care Team Providers Care Cuff Matcher Name Role Phone Elias Leger MD Primary Care Provider [phone] Nate Disla DO Unavailable [phone] 4 Medications polyethylene glycol (MIRALAX) Powder Mix the [...] Health Maintenance Due Date Last Done Comments Hepatitis C Virus (HCV) Screening 1935 TdaP Immunization 1935 Pneumococcal Immunization (5 0+ years) (1 of 1 - PCV) 10/24/1987 Zoster Immunization (1 of 2) 10/24/1987 Medicare Initial AWV [id number] 10/22/2003 Respiratory Syncytial Virus (RSV) Immunization (Adult) (1 - 1-dose 75+ series) 2012 Influenza Immunization (#1) 2024 SARS-COV-2 Immunization ( season) 2024 04/10/2021, 09/17/2020, 08/20/2020 Hepatitis B Immunization Aged Out No longer eligible based on patient's age to complete this topic Human Papillomavirus (HPV) Immunization Aged Out No longer eligible b ased on patient's age to complete this topic Meningococcal Immunization (ACWY) Aged Out No longer eligible b ased on patient's age to complete this topic Rotavirus Immunization Aged Out No lo nger eligible based on patient's age to complete this topic Insurance MEDICARE [employer] SENIOR SUPPLEMENTAL Care Teams Cuff Matcher Relationship Specialty Start Date End Date Elias Leger MD [address] [place] [address] PCP - General Family Medicine 05/13/15 Nate Disla DO [address] [place] [address] Gastroenterology 05/13/15
[2025-04-17 18:48] LABS: Hematocrit 42.7 % (37.0-47.0); Hemoglobin 14.3 g/dL (12.0-15.0); Immature Granulocyte Percent A 0.2 % (0-0.5); Immature Platelet Fraction Pct 3.4 % (0.9-11.2); Lymphocytes Absolute Auto 1.08 K/mm3 (0.9-3.2); Mean Corpuscular HGB Conc 33.5 g/dl (32-36); Mean Corpuscular Hemoglobin 32.6 pg (26-34); Mean Corpuscular Volume 97.5 fl (80-100); Nucleated Red Blood Cells Absolute Auto 0.000 K/mm3 (0.0-0.012); Nucleated Red Blood Cells Perc 0.0 % (0.0-0.2); Platelet Count Result 295 k/mm3 (150-375); Red Blood Count 4.38 M/mm3 (4.2-5.4); White Blood Count 4.0 K/mm3 (4.5-10.0)
[2025-04-17 19:31] LABS: Thyroid Stimulating Hormone Reflex 2.500 uIU/mL (0.465-4.68)
[2025-04-17 19:41] LABS: Alanine Aminotransferase 18 U/L (6-35); Albumin Level 4.3 g/dL (3.5-5.1); Alkaline Phosphatase 67 U/L (38-126); Anion Gap 4 mmol/L (4-12); Aspartate Amino Transferase 36 U/L (14-36); Bilirubin,Total 0.4 mg/dL (0.2-1.3); Blood Urea Nitrogen 12 mg/dL (7-17); Calcium 9.6 mg/dL (8.4-10.2); Carbon Dioxide 30 mmol/L (22-30); Chloride 104 mmol/L (98-107); Cholesterol 248 mg/dL (0-200); Estimated Glomerular Filt Rate > 60; Glucose 97 mg/dL (65-110); HDL Direct 88 mg/dL; Magnesium 2.0 mg/dL (1.6-2.3); Potassium 4.7 mmol/L (3.4-5.0); Sodium 138 mmol/L (137-145); Total Protein 7.2 g/dL (6.3-8.2); Triglycerides 97 mg/dL (<150)
[2025-04-17 20:05] LABS: Hemoglobin A1C 5.4 % (<5.7)
[2025-04-17 20:36] LABS: Vitamin B12 337.0 pg/mL (239-931)
== END 2025-04-17 08:22 | disposition home or self-care (01) ==
LOC: ANHGOSHLAB 08:21
PROVIDERS: PCP Family Medicine; Visit Provider Nurse Practitioner Family
DX: E78.5 Hyperlipidemia, unspecified (principal); I10 Essential (primary) hypertension; R73.03 Prediabetes; F41.8 Other specified anxiety disorders; E55.9 Vitamin D deficiency, unspecified
CPT/HCPCS: 36415; 80053; 80061; 82306; 82607; 83036; 83735; 84443; 85025; 85055